=== PATIENT | male | born 1960 | race Caucasian/White ===

== ENCOUNTER 2022-05-14 17:08 | Inpatient (IN) ==
[2022-05-14] MEDS ORDERED: ONDANSETRON INJ 2 MG/ML 2 ML VIAL IV STA (17:29)
[2022-05-14] MEDS ORDERED: FAMOTIDINE 20MG IV PUSH 20 MG/5 ML SYR IV STA (17:29)
[2022-05-14] MEDS ORDERED: SODIUM CHLORIDE 0.9% 1000ML 1,000 ML IV SCH (17:30)
--- NOTE | 2022-05-14 17:34 | Emergency Department Note ---
Impression & Plan Acute KS, Bradycardia, Hypotension, Elevated troponin, COVID-19 ED Provider Note NAME: ZACH MARCELO AGE: 61 SEX: M : 1960 ARRIVES VIA: Walk-In INFORMANT: [Patient] ED PROVIDER(S): [Virgil Pete MD] CHIEF COMPLAINT: Weakness, illness HISTORY OF PRESENT ILLNESS: The patient is a 61-year-old male who presents to the ER with complaints of weakness, fatigue, nausea and a fluttering in his chest. He states that yesterday he was working outside in a shed and doing some cleaning. It was quite hot. He states that the chemicals and heat seem to overwhelm him and his vision became white. He was quite sweaty and had to sit down. Since that timeframe, he has been fatigued and has had a loss of appetite. He has noticed some belching and occasional fluttering in the chest. No chest pain. He has tried Tums which really has not helped. Yesterday, he had some mild epigastric pain, none today. There has been no fever, no cough. No diarrhea or vomiting. The patient is still urinating but states that his urine output has decreased. REVIEW OF SYSTEMS: See HPI for pertinent positives and negatives. A total of ten systems were reviewed and were otherwise negative. PMHx/PSHx: See Below SOCIAL HISTORY: See Below. PHYSICAL EXAM: GENERAL: Patient is in no acute distress. HEENT: No acute trauma, normocephalic atraumatic, mucous membranes moist, no nasal congestion, no scleral icterus. NECK: No stridor, no adenopathy, no meningismus, trachea is midline. LUNGS: Clear to auscultation bilaterally, no wheeze, no rhonchi, breath sounds equal. HEART: Without murmurs gallops or rubs, bradycardic, regular rhythm. ABDOMEN: Soft, nontender, bowel sounds positive, no peritonitis. EXTREMITIES: No cyanosis or edema, full range of motion of all the joints without pain or difficulty, no signs for acute trauma. NEUROLOGIC: Oriented x 3, no acute motor or sensory deficits, no focal weakness. SKIN: No rash, no jaundice, no diaphoresis. DIFFERENTIAL DIAGNOSIS: Infection, dehydration, reflux, viral infection, COVID-19, rhabdomyolysis, metabolic abnormality, hypo/hyperglycemia, electrolyte disturbance, anemia, hypoxia, KS, cardiac sources, intracerebral event, toxicologic issues, stroke, TIA, as well as other pathologies. EMERGENCY DEPARTMENT COURSE/PROCEDURES: ECG: Indication was weakness and fatigue. The ECG shows what appears to be a sinus bradycardia with a rate of 48. There is a Q wave in lead III. There is ST elevation in the inferior leads with some T wave inversion in aVL. There is some subtle ST depression in the anterior/lateral leads. The ECG is concerning for KS. QTC is 384. No PVCs. Compared to an ECG from 09 November 2018, significant changes have occurred. Criteria for KS are now present. Continuous Cardiac Monitoring: An order was placed for continuous cardiac monitoring. The monitor shows a rate of 49 with sinus bradycardia. Critical Care Note: I have personally spent 45 minutes of critical care time in the direct management of this patient. This includes bedside care, interpretation of diagnostic studies, and testing, discussion with consultants, patient, and family members, and other required patient management activities. This 45 minutes is in excess of all separately billable procedures. MEDICAL DECISION MAKING: There is a slight leukocytosis, this could be from the stress of his presentation or potentially infection. There is a normal hemoglobin and platelet count. No renal failure or significant electrolyte abnormality. Bilirubin and AST were slightly elevated, the remaining liver enzymes were unremarkable. Total CK was elevated at over 1000, consistent with some potential muscle breakdown. The patient appeared to be in a euthyroid state. COVID test returned positive. Influenza and RSV test returned negative. Chest x-ray did not show pneumonia or CHF. No mediastinal widening. ECG showed what appears to be a sinus bradycardia with ST elevation in the inferior leads with reciprocal changes. A Q wave was forming in lead III. Cardiac troponin returned quite elevated at over 22,000. The patient had presented bradycardic and hypotensive. He was not having any chest pain in fact, it appears his cardiac event may have happened yesterday. The patient was given IV saline, 1 L. He was given IV Zofran and IV Pepcid. He was given oral aspirin. Given the findings on ECG, a heart alert was initiated. I did speak with the interventionalist on-call. The interventionalist was involved in a another heart alert and as the patient was not having active chest pain, it was felt that he could wait until the first case was finished. The patient is currently resting comfortably. His blood pressure has improved with the saline. I spoke to the patient and his . They are aware of the findings. The patient remained stable while here in the ED. 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 Beliefs That Will Affect Care: None Current Living Situation: Spouse Feels Safe at Home: Yes Assistive Devices: None Allergies Allergies Allergy/AdvReac Type Severity Reaction Status Date / Time pollen extracts Allergy Intermediate ITCHY Verified 05/14/22 18:05 EYES, SNEEZING, CONGESTION Home Meds Home Medications Medication Instructions Recorded Confirmed allopurinol 100 mg tablet 200 mg PO HS 05/14/22 05/14/22 calcium carbonate 200 mg calcium 400 - 600 mg PO DIRECTED PRN 05/14/22 05/14/22 (500 mg) chewable tablet (Tums) Results & Data (ED) Vital Signs Vital Signs - 24 hr 05/14/22 17:13 05/14/22 17:51 05/14/22 17:53 Temperature 37.3 C Temperature Source Temporal Artery Scan Pulse Rate 60 47 L Pulse Rate [Left Apical] 47 L Pulse Rate from SpO2 Sensor Pulse Rhythm [Left Apical] Regular Pulse Strength [Left Apical] Normal Respiratory Rate 17 22 16 Respiratory Effort / Characteristics Non-Labored Non-Labored Respiratory Depth Normal Respiratory Pattern Blood Pressure 108/64 Blood Pressure [Right Arm] 89/65 L Blood Pressure Mean 78 Blood Pressure Mean [Right Arm] 73 Blood Pressure Position [Right Arm] Lying Pulse Oximetry 95 93 98 Oxygen Delivery Method Room Air Room Air Room Air Sepsis Recent Fever Within 48 Hours No Sepsis New/Unexplained Change in Mental Status N/A Sepsis Action Taken by Nursing No Action Required 05/14/22 17:54 05/14/22 18:00 05/14/22 18:03 Temperature Temperature Source Pulse Rate 49 L 47 L Pulse Rate [Left Apical] Pulse Rate from SpO2 Sensor Pulse Rhythm [Left Apical] Pulse Strength [Left Apical] Respiratory Rate 21 18 Respiratory Effort / Characteristics Respiratory Depth Respiratory Pattern Blood Pressure 87/61 L 96/63 L Blood Pressure [Right Arm] Blood Pressure Mean 69 74 Blood Pressure Mean [Right Arm] Blood Pressure Position [Right Arm] Pulse Oximetry 98 95 95 Oxygen Delivery Method Room Air Room Air Room Air Sepsis Recent Fever Within 48 Hours Sepsis New/Unexplained Change in Mental Status Sepsis Action Taken by Nursing 05/14/22 18:06 05/14/22 18:15 05/14/22 18:22 Temperature Temperature Source Pulse Rate 51 L Pulse Rate [Left Apical] 48 L 45 L Pulse Rate from SpO2 Sensor 48 L Pulse Rhythm [Left Apical] Regular Regular Pulse Strength [Left Apical] Normal Normal Respiratory Rate 16 19 16 Respiratory Effort / Characteristics Non-Labored Non-Labored Spontaneous Respiratory Depth Normal Normal Respiratory Pattern Regular Blood Pressure 92/54 L Blood Pressure [Right Arm] 96/63 L 92/54 L Blood Pressure Mean 66 Blood Pressure Mean [Right Arm] 74 66 Blood Pressure Position [Right Arm] Lying Lying Pulse Oximetry 98 97 98 Oxygen Delivery Method Room Air Room Air Sepsis Recent Fever Within 48 Hours Sepsis New/Unexplained Change in Mental Status Sepsis Action Taken by Nursing 05/14/22 18:30 05/14/22 18:45 Temperature Temperature Source Pulse Rate 48 L 47 L Pulse Rate [Left Apical] Pulse Rate from SpO2 Sensor 49 L 48 L Pulse Rhythm [Left Apical] Pulse Strength [Left Apical] Respiratory Rate 16 31 H Respiratory Effort / Characteristics Respiratory Depth Respiratory Pattern Blood Pressure 92/56 L 103/61 Blood Pressure [Right Arm] Blood Pressure Mean 68 75 Blood Pressure Mean [Right Arm] Blood Pressure Position [Right Arm] Pulse Oximetry 95 94 Oxygen Delivery Method Sepsis Recent Fever Within 48 Hours Sepsis New/Unexplained Change in Mental Status Sepsis Action Taken by [facility] Medications Current Medication List: was personally reviewed by me Laboratory Data Attestation: I reviewed the patient's lab results. Result diagrams: 05/14/22 17:39 05/14/22 17:39 Lab Results 05/14/22 05/14/22 05/14/22 Range/Units 17:39 17:39 17:39 WBC 12.42 H (4.8-10.8) K/uL RBC 4.92 (4.7-6.1) M/uL Hgb 15.4 (14.0-18.0) g/dL Hct 44.6 (42-52) % MCV 90.7 (80-100) fL MCH 31.3 (25-34) pg MCHC 34.5 (32-36) g/dL RDW Std Deviation 45.1 (36.4-46.3) fL RDW Coeff of Leeann 13.8 (11.5-14.5) % Plt Count 176 (130-400) K/uL MPV 10.6 H (7.4-10.4) fL Immature Gran % (Auto) 0.2 % Neut % (Auto) 81.0 % Lymph % (Auto) 10.3 % [place] % (Auto) 8.1 % Eos % (Auto) 0.4 % Baso % (Auto) 0.0 % Neut # (Auto) 10.05 H (1.4-6.5) K/uL Lymph # (Auto) 1.28 (1.2-3.4) K/uL [place] # (Auto) 1.01 H (0.11-0.59) K/uL Eos # (Auto) 0.05 (0-0.5) K/uL Baso # (Auto) 0.00 (0-0.2) K/uL Immature Gran # (Auto) 0.03 H (0.00-0.02) K/uL Sodium 140 (136-145) mmol/L Potassium 3.9 (3.5-5.1) mmol/L Chloride 106 (98-107) mmol/L Carbon Dioxide 28 (21-32) mmol/L Anion Gap 6 (3-11) BUN 31 H (6-23) mg/dl Creatinine 1.35 (0.6-1.4) mg/dl Est Cr Clr Drug Dosing 68.0 ml/min Est GFR ( Amer) 64.3 ml/min Est GFR (Non-Af Amer) 55.5 ml/min BUN/Creatinine Ratio 23.0 H (10-20) Glucose 131 H (70-99(Fasting)) mg/dl Calcium 10.1 (8.5-10.1) mg/dl Magnesium 2.0 (1.7-2.4) mg/dl Total Bilirubin 2.7 H (0.2-1.0) mg/dl AST 138 H (13-39) U/L ALT 34 (7-52) U/L Alkaline Phosphatase 90 (34-104) U/L Total Creatine Kinase 1252 H (30-223) U/L Troponin I High Sens 06022.4 H* (0-20) pg/ml Total Protein 6.9 (6.0-8.3) gm/dl Albumin 4.2 (3.4-5.0) gm/dl Globulin 2.7 (2.5-4.0) gm/dl Albumin/Globulin Ratio 1.6 (0.9-2) TSH 1.715 (0.300-4.500) uIu/ml SARS-CoV-2 (PCR) (Negative) Influenza Type A (PCR) (Neg) Influenza Type B (PCR) (Neg) RSV (RT-PCR) (Neg) 05/14/22 Range/Units 17:39 WBC (4.8-10.8) K/uL RBC (4.7-6.1) M/uL Hgb (14.0-18.0) g/dL Hct (42-52) % MCV (80-100) fL MCH (25-34) pg MCHC (32-36) g/dL RDW Std Deviation (36.4-46.3) fL RDW Coeff of Leeann (11.5-14.5) % Plt Count (130-400) K/uL MPV (7.4-10.4) fL Immature Gran % (Auto) % Neut % (Auto) % Lymph % (Auto) % [place] % (Auto) % Eos % (Auto) % Baso % (Auto) % Neut # (Auto) (1.4-6.5) K/uL Lymph # (Auto) (1.2-3.4) K/uL [place] # (Auto) (0.11-0.59) K/uL Eos # (Auto) (0-0.5) K/uL Baso # (Auto) (0-0.2) K/uL Immature Gran # (Auto) (0.00-0.02) K/uL Sodium (136-145) mmol/L Potassium (3.5-5.1) mmol/L Chloride (98-107) mmol/L Carbon Dioxide (21-32) mmol/L Anion Gap (3-11) BUN (6-23) mg/dl Creatinine (0.6-1.4) mg/dl Est Cr Clr Drug Dosing ml/min Est GFR ( Amer) ml/min Est GFR (Non-Af Amer) ml/min BUN/Creatinine Ratio (10-20) Glucose (70-99(Fasting)) mg/dl Calcium (8.5-10.1) mg/dl Magnesium (1.7-2.4) mg/dl Total Bilirubin (0.2-1.0) mg/dl AST (13-39) U/L ALT (7-52) U/L Alkaline Phosphatase (34-104) U/L Total Creatine Kinase (30-223) U/L Troponin I High Sens (0-20) pg/ml Total Protein (6.0-8.3) gm/dl Albumin (3.4-5.0) gm/dl Globulin (2.5-4.0) gm/dl Albumin/Globulin Ratio (0.9-2) TSH (0.300-4.500) uIu/ml SARS-CoV-2 (PCR) POSITIVE A* (Negative) Influenza Type A (PCR) Negative (Neg) Influenza Type B (PCR) Negative (Neg) RSV (RT-PCR) Negative (Neg) Administered Medications Discontinued Medications Aspirin (Aspirin Chew 324 Mg) Confirm Administered Dose 324 mg .ROUTE .STK-MED ONE Stop: 05/14/22 18:08 Last Admin: 05/14/22 18:11 Dose: 324 mg Documented by: [id number] Sodium Chloride (Nss 1000ml) 1,000 mls @ 999 mls/hr IV .[id number] [id number] Stop: 05/14/22 18:30 Last Infusion: 05/14/22 18:45 Dose: 0 mls/hr Documented by: [id number] Admin: 05/14/22 17:43 Dose: 999 mls/hr Documented by: [id number] Famotidine (Pepcid 20mg Iv Push) 20 mg in 5 mls @ 2.5 mls/min IV NOW STA Stop: 05/14/22 17:30 Last Admin: 05/14/22 17:43 Dose: 2.5 mls/min Documented by: [id number] Ondansetron HCl (Ondansetron Inj 2 Mg/Ml 2 Ml Vial) 4 mg IV NOW STA Stop: 05/14/22 17:30 Last Admin: 05/14/22 17:43 Dose: 4 mg Documented by: [id number] Imaging Data Radiologist's Impression: Chest X-Ray 05/14/22 17:29 XR chest 1V portable CLINICAL HISTORY: weakness TECHNIQUE: Single frontal radiograph of the chest was obtained. Comparison: None available at the time of this dictation. FINDINGS: No lines and tubes are seen. The cardiomediastinal silhouette is normal. The lungs are clear. No evidence of pleural effusion or pneumothorax. IMPRESSION: No acute chest disease. ACT 112: Negative or not required by law. Electronically signed by: Sae Joseph M.D. 05/14/2022 6:01 PM Discharge Plan Visit Data Chief Complaint: Illness Stated Complaint: FATIGUE, LOSS OF APETITE ED Provider: Virgil Pete Discharge Instructions Interventions: ED Discharge Assessment Last Done: 05/14/22 19:20 Prescriptions Prescriptions: No Action allopurinol 100 mg tablet 200 mg PO HS RF: 0 calcium carbonate [Tums] 200 mg calcium (500 mg) Tablet,Chewable 400 - 600 mg PO DIRECTED PRN (Reason: HEARTBURN/INDIGESTION) RF: 0
[2022-05-14 17:53] LABS: Eosinophils # (auto) 0.05 K/uL (0-0.5); Eosinophils % (auto) 0.4 %; Hematocrit (blood only) 44.6 % (42-52); Hemoglobin 15.4 g/dL (14.0-18.0); Immature Granulocytes # (auto) 0.03 K/uL (0.00-0.02); Immature Granulocytes % (auto) 0.2 %; Lymphocytes # (auto) 1.28 K/uL (1.2-3.4); Lymphocytes % (auto) 10.3 %; Mean Corpuscular Hemoglobin 31.3 pg (25-34); Mean Corpuscular Hgb Conc 34.5 g/dL (32-36); Mean Corpuscular Volume 90.7 fL (80-100); Mean Platelet Volume 10.6 fL (7.4-10.4); Monocytes # (auto) 1.01 K/uL (0.11-0.59); Monocytes % (auto) 8.1 %; Neutrophils # (auto) 10.05 K/uL (1.4-6.5); Platelet Count 176 K/uL (130-400); RDW Coefficient of Variation 13.8 % (11.5-14.5); RDW Standard Deviation 45.1 fL (36.4-46.3); Red Blood Count 4.92 M/uL (4.7-6.1); White Blood Count 12.42 K/uL (4.8-10.8)
--- NOTE | 2022-05-14 18:03 | XRay Report ---
XR chest 1V portable CLINICAL HISTORY: weakness TECHNIQUE: Single frontal radiograph of the chest was obtained. Comparison: None available at the time of this dictation. FINDINGS: No lines and tubes are seen. The cardiomediastinal silhouette is normal. The lungs are clear. No evid ence of pleural effusion or pneumothorax. IMPRESSION: No acute chest disease. ACT 112: Negative or not required by law. Electronically signed by: Sae Joseph M.D. 05/14/2022 6:01 PM
[2022-05-14] MEDS ORDERED: ASPIRIN CHEW 324 MG ONE (18:07)
[2022-05-14 18:16] LABS: Albumin Globulin Ratio 1.6 (0.9-2); Albumin Level 4.2 gm/dl (3.4-5.0); Bilirubin,Total 2.7 mg/dl (0.2-1.0); Calcium 10.1 mg/dl (8.5-10.1); Est GFR (African American) 64.3 ml/min; Est GFR (Non-African American) 55.5 ml/min; Globulin 2.7 gm/dl (2.5-4.0); Potassium 3.9 mmol/L (3.5-5.1); Total Protein 6.9 gm/dl (6.0-8.3)
[2022-05-14 18:34] LABS: Troponin I High Sensitivity 22192.4 pg/ml (0-20)
[2022-05-14 18:41] LABS: Influenza A virus by PCR Negative (Neg); Influenza B virus by PCR Negative (Neg); RSV by PCR Negative (Neg)
[2022-05-14 19:07] LABS: SARS CoV2 RNA(COVID-19) InHosp POSITIVE (Negative)
[2022-05-14] MEDS ORDERED: fentaNYL citrate 100 MCG/2 ML VIAL ONE (19:10)
[2022-05-14] MEDS ORDERED: niCARdipine HCL INJ 2.5 MG/ML 10 ML AMP ONE (19:10)
[2022-05-14] MEDS ORDERED: MIDAZOLAM HCL 1 MG/ML 2ML VIAL ONE (19:10)
[2022-05-14] MEDS ORDERED: NITROGLYCERIN/D5W 100MCG/ML 20ML SYR ONE (19:11)
--- NOTE | 2022-05-14 19:50 | History & Physical Report ---
Date of Service May 14, 2022 Assessment & Plan (1) STEMI (ST elevation myocardial infarction): Plan: Multivessel occlusion on cardiac catheterization for which CABG is recommended Bradycardia secondary to above Chronic systolic heart failure secondary ischemic cardiomyopathy with above Patient currently without signs of fluid overload COVID-19 illness without pulmonary symptoms Hyperglycemia rule out DM ICU monitoring [facility] transfer once bed available. (ICU provider to facilitate transfer.) Atropine as needed symptomatic bradycardia. Supportive management for COVID-19 illness Check hemoglobin A1c DVT prophylaxis. IV heparin Full code Text document was generated using SpinNote voice recognition software. It may contain grammatical or spelling errors. Kindly contact undersigned for clarification of any documentation item in question. History of Present Illness Chief Complaint: Weakness, illness Primary Care Provider: Amarjit Leon MD History obtained from patient and records. Medical history significant for hyperlipidemia, gout. Last confinement October 2018 for syncope. Yesterday, patient noted generalized weakness, fatigue, nausea symptoms. Chest fluttering without actual chest pain or shortness of breath. Patient attributed symptoms to outdoor heat while he was working outside in the shed. Patient denies cough symptoms. No known recent sick COVID-19 contacts. Patient completed COVID-19 vaccination. Patient consulted ER for persistent symptoms. ST elevation noted on inferior leads on EKG. Patient underwent emergent cardiac catheterization. Left circumflex and LAD noted to be occluded. Ejection fraction noted to be 40%. No PCI with above findings. CABG recommended by pasteurizing supervisor pending bed availability at [facility]. Patient transferred to ICU for postprocedure monitoring. Patient currently comfortable. 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 Allergies Allergy/AdvReac Type Severity Reaction Status Date / Time pollen extracts Allergy Intermediate ITCHY Verified 05/14/22 18:05 EYES, SNEEZING, CONGESTION Home Medications Medication Instructions Recorded Confirmed Type allopurinol 100 mg tablet 200 mg PO HS 05/14/22 05/14/22 History calcium carbonate 200 mg calcium 400 - 600 mg PO DIRECTED PRN 05/14/22 05/14/22 History (500 mg) chewable tablet (Tums) Past Med/Surg History Medical History Gout Family History Other No significant family history Social History Smoking Status: Never smoker Second Hand Exposure: No; Hx Alcohol Use: Yes Alcohol type: other Hx Substance Use: No Preferred Language: Spanish Communication Ability: Effective Dental Laboratory Technician Required: No Beliefs That Will Affect Care: None Current Living Situation: Spouse Feels Safe at Home: Yes Assistive Devices: None Review of Systems Review of Systems: As per HPI, all other systems reviewed and negative Physical Exam Physical Exam: GENERAL: Comfortable, pleasant, obese, no respiratory distress SKIN: Normal color, warm HEENT: [place] palpebral conjunctivae, no ptosis, dry buccal mucosa NECK : Supple, no tenderness CHEST : CTA, no tenderness HEART : Bradycardic, no obvious murmurs ABDOMEN: Some distention, nontender EXTREMITIES : No LE swelling/tenderness, no other conspicuous deformities noted NEUROLOGIC : Coherent, no facial asymmetry, no other gross focality Results & Data Results & Data ([facility]) Vital Signs (Past 12 Hours) Vital Signs Temp Pulse Pulse Resp BP BP Pulse Ox 05/14/22 18:45 47 L 31 H 103/61 94 05/14/22 18:30 48 L 16 92/56 L 95 05/14/22 18:22 45 L 16 92/54 L 98 05/14/22 18:15 51 L 19 92/54 L 97 05/14/22 18:06 48 L 16 96/63 L 98 05/14/22 18:03 47 L 18 96/63 L 95 05/14/22 18:00 49 L 21 87/61 L 95 05/14/22 17:54 98 05/14/22 17:53 47 L 16 89/65 L 98 05/14/22 17:51 47 L 22 93 05/14/22 17:13 37.3 C 60 17 108/64 95 Laboratory Results Laboratory Results WBC 12.42 K/uL (4.8-10.8) H 05/14/22 17:39 RBC 4.92 M/uL (4.7-6.1) 05/14/22 17:39 Hgb 15.4 g/dL (14.0-18.0) 05/14/22 17:39 Hct 44.6 % (42-52) 05/14/22 17:39 MCV 90.7 fL (80-100) 05/14/22 17:39 MCH 31.3 pg (25-34) 05/14/22 17:39 MCHC 34.5 g/dL (32-36) 05/14/22 17:39 RDW Std Deviation 45.1 fL (36.4-46.3) 05/14/22 17:39 RDW Coeff of Leeann 13.8 % (11.5-14.5) 05/14/22 17:39 Plt Count 176 K/uL (130-400) 05/14/22 17:39 MPV 10.6 fL (7.4-10.4) H 05/14/22 17:39 Immature Gran % (Auto) 0.2 % 05/14/22 17:39 Neut % (Auto) 81.0 % 05/14/22 17:39 Lymph % (Auto) 10.3 % 05/14/22 17:39 [place] % (Auto) 8.1 % 05/14/22 17:39 Eos % (Auto) 0.4 % 05/14/22 17:39 Baso % (Auto) 0.0 % 05/14/22 17:39 Neut # (Auto) 10.05 K/uL (1.4-6.5) H 05/14/22 17:39 Lymph # (Auto) 1.28 K/uL (1.2-3.4) 05/14/22 17:39 [place] # (Auto) 1.01 K/uL (0.11-0.59) H 05/14/22 17:39 Eos # (Auto) 0.05 K/uL (0-0.5) 05/14/22 17:39 Baso # (Auto) 0.00 K/uL (0-0.2) 05/14/22 17:39 Immature Gran # (Auto) 0.03 K/uL (0.00-0.02) H 05/14/22 17:39 Sodium 140 mmol/L (136-145) 05/14/22 17:39 Potassium 3.9 mmol/L (3.5-5.1) 05/14/22 17:39 Chloride 106 mmol/L (98-107) 05/14/22 17:39 Carbon Dioxide 28 mmol/L (21-32) 05/14/22 17:39 Anion Gap 6 (3-11) 05/14/22 17:39 BUN 31 mg/dl (6-23) H 05/14/22 17:39 Creatinine 1.35 mg/dl (0.6-1.4) 05/14/22 17:39 Est Cr Clr Drug Dosing 68.0 ml/min 05/14/22 17:39 Est GFR ( Amer) 64.3 ml/min 05/14/22 17:39 Est GFR (Non-Af Amer) 55.5 ml/min 05/14/22 17:39 BUN/Creatinine Ratio 23.0 (10-20) H 05/14/22 17:39 Glucose 131 mg/dl (70-99(Fasting)) H 05/14/22 17:39 Calcium 10.1 mg/dl (8.5-10.1) 05/14/22 17:39 Magnesium 2.0 mg/dl (1.7-2.4) 05/14/22 17:39 Total Bilirubin 2.7 mg/dl (0.2-1.0) H 05/14/22 17:39 AST 138 U/L (13-39) H 05/14/22 17:39 ALT 34 U/L (7-52) 05/14/22 17:39 Alkaline Phosphatase 90 U/L (34-104) 05/14/22 17:39 Total Creatine Kinase 1252 U/L (30-223) H 05/14/22 17:39 Troponin I High Sens 96759.4 pg/ml (0-20) H* 05/14/22 17:39 Total Protein 6.9 gm/dl (6.0-8.3) 05/14/22 17:39 Albumin 4.2 gm/dl (3.4-5.0) 05/14/22 17:39 Globulin 2.7 gm/dl (2.5-4.0) 05/14/22 17:39 Albumin/Globulin Ratio 1.6 (0.9-2) 05/14/22 17:39 TSH 1.715 uIu/ml (0.300-4.500) 05/14/22 17:39 SARS-CoV-2 (PCR) POSITIVE (Negative) A* 05/14/22 17:39 Influenza Type A (PCR) Negative (Neg) 05/14/22 17:39 Influenza Type B (PCR) Negative (Neg) 05/14/22 17:39 RSV (RT-PCR) Negative (Neg) 05/14/22 17:39 Impressions Chest X-Ray 05/14/22 17:29 XR chest 1V portable CLINICAL HISTORY: weakness TECHNIQUE: Single frontal radiograph of the chest was obtained. Comparison: None available at the time of this dictation. FINDINGS: No lines and tubes are seen. The cardiomediastinal silhouette is normal. The lungs are clear. No evidence of pleural effusion or pneumothorax. IMPRESSION: No acute chest disease. ACT 112: Negative or not required by law. Electronically signed by: Sae Joseph M.D. 05/14/2022 6:01 PM Diagnostic Findings EKG as per my interpretation: T, junctional rhythm, ST elevation inferior leads
--- NOTE | 2022-05-14 19:52 | Pre Anesthesia Assessment ---
Date of Service May 14, 2022 Pre Sedation Assessment Vital Signs Temp Pulse Pulse Resp BP BP Pulse Ox 05/14/22 18:45 47 L 31 H 103/61 94 05/14/22 18:30 48 L 16 92/56 L 95 05/14/22 18:22 45 L 16 92/54 L 98 05/14/22 18:15 51 L 19 92/54 L 97 05/14/22 18:06 48 L 16 96/63 L 98 05/14/22 18:03 47 L 18 96/63 L 95 05/14/22 18:00 49 L 21 87/61 L 95 05/14/22 17:54 98 05/14/22 17:53 47 L 16 89/65 L 98 05/14/22 17:51 47 L 22 93 05/14/22 17:13 37.3 C 60 17 108/64 95 Cardiovascular RRR, no murmur, no edema Respiratory normal respiratory effort, lungs clear to auscultation Pre-Sedation Airway Assessment Smoking Status: Never smoker II III Notes The planned sedation has been discussed with the patient. Informed Consent was obtained. I have identified the patient, determined the appropriateness of sedation and have assessed the patient immediately prior to the procedure. All medicine(s) and interventions are by my order.
--- NOTE | 2022-05-14 19:54 | Post Anesthesia Assessment ---
Date of Service May 14, 2022 Post Sedation Assessment Vital Signs Temp Pulse Pulse Resp BP BP Pulse Ox 05/14/22 18:45 47 L 31 H 103/61 94 05/14/22 18:30 48 L 16 92/56 L 95 05/14/22 18:22 45 L 16 92/54 L 98 05/14/22 18:15 51 L 19 92/54 L 97 05/14/22 18:06 48 L 16 96/63 L 98 05/14/22 18:03 47 L 18 96/63 L 95 05/14/22 18:00 49 L 21 87/61 L 95 05/14/22 17:54 98 05/14/22 17:53 47 L 16 89/65 L 98 05/14/22 17:51 47 L 22 93 05/14/22 17:13 37.3 C 60 17 108/64 95 Recovery Score Activity: Moves 4 extremities Respiration: Deep Breath/Cough Circulation: +/-20% PreAnes Value Consciousness: Fully Awake Oxygen Saturation: > 92% On Room Air Discharge Sedation Level of Care: Phase I Post Sedation Plan On clinical assessment, the patient appears to have tolerated the sedation without complications. Patient is recovering as anticipated. Patient will continue to be monitored by nursing and may be discharged when sedation discharge criteria are met per below protocol. Upon Completions of procedure up to 15 minutes continue every 5 minute vital signs and the P.A.R. score; then discharge to a Phase I or Fast Track to Phase II per the following guidelines: * Discharge Patient to appropriate Phase II area if PAR is 8 or greater or return to pre- procedure baseline. The post - procedure orders will be as directed. * If PAR score is less than 8 or not return to pre-procedure baseline then patient will follow Phase I monitoring till PAR is reached for Phase II. The Phase I may be done in procedure room or may call to secure a Phase I area. * If naloxone or flumazenil are used for reversal, hold in Phase I for continued monitoring from when last reversal dose was given for a minimum of 60 minutes or longer pending the nurse and/or physician discretion of patient condition before discharge to Phase II. Please call the Sedation Physician to re-evaluate and complete post-note for discharge to Phase II area. Do NOT discharge from procedure sedation or Phase 1 until post- sedation evaluation note is complete by procedure /sedation MD Sedation Discharge Instructions to be given to the patient at discharge to home.
[2022-05-14] MEDS ORDERED: ATORVASTATIN 40 MG TAB PO SCH (20:00)
[2022-05-14] MEDS ORDERED: Heparin IV Adult Wt-Based Standard WITH Bolus Protocol IV SCH (20:04)
--- NOTE | 2022-05-14 20:08 | Cardiac Catheterization ---
ACC Data: Rehabilitation Nurse Cardiac Status Clinical evaluation leading to the procedure CAD Presenation: Non STEMI Diagnostic Physicians Name: Tigre Brooks MD Closure Device Recommendations: CABG Cardiac Cath Procedure Full Procedure Date May 14, 2022 Pre-Procedure Diagnosis Pre-Procedure Diagnosis: Non STEMI AUC Score AUC Score: 9 Post-Procedure Diagnosis Post-Procedure Diagnosis: Severe CAD Procedure(s) Performed Procedure(s) Performed: Coronary Angiography, Left Heart Cath and LV Angiography Trimming Inspector Tigre Brooks MD Estimated Blood Loss Estimated Blood Loss: None Summary of Findings 61-year-old gentleman, presented to the hospital with symptoms of generalized fatigue, poor exercise tolerance and upper abdominal discomfort/indigestion which started yesterday morning. His initial EKG in the emergency room showed evidence of mild ST segment elevations in inferior leads along with Q wave changes suggesting subacute myocardial infarction. His troponin levels were significantly elevated as well. He did not complain of any chest discomfort or tightness, denied any other significant symptoms of shortness of breath, dizziness or palpitations. Cardiac catheterization revealed occluded dominant proximal left circumflex artery, also 80 to 90% ostial and proximal left anterior descending artery stenosis. Right coronary artery was small and nondominant and was giving collateral flow to his distal left circumflex circulation. LV gram showed evidence of inferolateral wall hypokinesis, ejection fraction of 40% range, LVEDP was elevated at 30 mmHg. Given his above presentation and coronary anatomy, he would require coronary artery bypass grafting, further plans for transfer to [facility] will be made. He will be started on aspirin, high intensity statins and beta-blockers as tolerated. Also started on intravenous heparin for the next 24 to 48 hours. These findings were discussed with his , also intensive care unit staff prior to his transfer. Hemodynamics Rest Ao:: 103/60/109 Final Ao: 98/59/74 LV: 119/10/30 Recommendations Recommendations: CABG Radiation Exposure (mGy) 659 Contrast (mls) 81 I attest to the content of the Intraoperative Record and any orders documented therein. Any exceptions are noted below. PG Care Time/CCT Total # of Minutes Spent Total Time Spent with Patient: Total time spent is greater than 50% in coordination of care (as documented) at patient's floor/unit and/or counseling patient:
[2022-05-14] MEDS ORDERED: HEPARIN SOD (PORCINE) 1000 UNIT/ML IV ONE (20:17)
[2022-05-14] MEDS ORDERED: HEPARIN SODIUM/DEXTROSE 25,000 UNITS/500 ML BAG IV SCH (20:30)
--- NOTE | 2022-05-14 20:31 | Critical Care Consultation ---
Date of Consultation May 14, 2022 Assessment & Plan (1) Admitted to intensive care unit: Reason Critically Ill: 61-year-old male with acute inferior STEMI who is status post cardiac catheterization revealing multivessel coronary artery disease requiring ICU admission with plan transfer to tertiary care facility for evaluation for CABG. 2041: Reached out to CT surgery at [facility]. Spoke to Dr. Najera (CT Surgery) and Dr. Beckford (Cardiology). Patient accepted in transfer to [facility]. NEURO - * CAM ICU: NEGATIVE CARDIAC/VASCULAR - * Acute to Subacute Inferior STEMI s/p cardiac catheterization w/ findings of multivessel CAD: * Patient requires evaluation for CABG per interventionalist. * Patient asymptomatic w/o c/o chest pain. * Will continue on Heparin gtt. * Sinus bradycardia w/ occasional junctional rhythms noted on monitor. Hemodynamically stable. Pads in place. Atropine if needed. Consider Dopamine if necessary. Ultimately, transvenous pacer if patient becomes symptomatic. * 2041 - Spoke with Drs. Beckford and Reinaldo of [facility] cardiology and CT surgery. Accepted by Dr. Beckford in transfer to [facility]. * Patient updated. * EKG: Sinus Bradycardia @ [address] elevations in III, aVF. Q wave in III. QTc 384 ms. * Monitor on telemetry. RESPIRATORY - * No h/o pulmonary disease. * Saturating well on room air. GI/NUTRITION - * NPO while awaiting surgical evaluation. RENAL/LYTES - * No significant electrolyte derangements. * Elevated CPK w/o ROSA/ARF findings * Continue w/ LR for now. - * No concerns at this time. * Strict I&Os. ENDO - * No h/o DM or Thyroid Dz * BSGs per unit protocol. ISS --> gtt per unit policy. HEME - * Stable H&H * Requiring Heparin gtt in the setting of CAD. ID - * COVID-19 Positive: * Of questionable status at this time. * Patient reports symptoms of fever, nasal congestion, cough at the beginning of March. Unfortunately, patient was never tested for Covid. * Positive PCR today. * To consider new positive test at this time. * Thankfully asymptomatic otherwise. LINES/IV ACCESS - * PIVs x2 DVT PROPHYLAXIS - * Heparin gtt * SCDs I have personally spent 65 minutes of critical care time in the direct management of this patient. This is a life/limb threatening event. This includes time spent evaluating patient, direct bedside care, chart review, placing orders, interpretation of diagnostic studies, discussion with consultants, patient, and family members, as well as other required patient management activities. This time is exclusive of all separately billable procedures, and teaching time and separate from and in addition to any other critical care service time. Thank you for allowing us to participate in the care of this patient. Please refer to my attending physician's documentation for any further recommendations. (2) Multi-vessel coronary artery stenosis: (3) S/P cardiac catheterization: (4) Acute AL: (5) Bradycardia: (6) Hypotension: (7) Elevated troponin: (8) COVID-19: History of Present Illness Attending Physician: Tigre Brooks MD History of Present Illness Patient is a 61-year-old male with a significant past medical history of gout who presented to the emergency department this evening with complaints of near syncope, generalized fatigue, and intermittent sweating. Apparently, yesterday, while cleaning his shed, the patient had an episode of near syncope. He also had profound sweating 5.2. After sitting down, his symptoms did resolve. His generalized fatigue and weakness today as well as lack of appetite prompted visit to the emergency department today. Upon evaluation in the emergency d epartment, the patient was noted to have ST elevations in leads III and aVF as well as development of Q waves in lead III. High-sensitivity troponin elevated at greater than 22,000. Patient taken emergently to the catheterization suite where he was found to have occlusion of the dominant proximal LEFT circumflex artery, also 80 to 90% ostial and proximal left anterior descending artery stenosis, right coronary artery was small and nondominant and was giving collateral flow to his distal left circumflex circulation. LV gram showed evidence of inferior lateral wall hypokinesis, ejection fraction 40% range, LVEDP was elevated at 30 mmHg. I received a call from lab technician who recommends transfer to tertiary care facility for evaluation for CABG. As the patient is completely asymptomatic to this point, he recommends continuing heparin drip for now with plan for transfer as soon as possible. Upon evaluation in the ICU, the patient is awake, alert, and oriented. Other than feeling generally fatigued, he does not offer complaints at this time. It should be noted that the patient tested positive for COVID during PCR screening. In conversation with patient, he reports that he likely had symptoms of COVID during the beginning of March. He reports that during that time. He had a fever for approximately 12 hours with associated nasal congestion and upper respirator y symptoms for a few days, but has since had no symptoms at this time. Patient states that he has had some "seasonal allergy" type symptoms since that time, but no acute symptoms otherwise. Specifically, the patient offers no complaints of headaches, dizziness, lightheadedness, chest pain, palpitations, shortness of breath, pleuritic pain, nausea, vomiting, abdominal pain, hematochezia, melena, hematuria, or dysuria. Allergies Allergy/AdvReac Type Severity Reaction Status Date / Time pollen extracts Allergy Intermediate ITCHY Verified 05/14/22 18:05 EYES, SNEEZING, CONGESTION Home Medications Medication Instructions Recorded Confirmed Type allopurinol 100 mg tablet 200 mg PO HS 05/14/22 05/14/22 History calcium carbonate 200 mg calcium 400 - 600 mg PO DIRECTED PRN 05/14/22 05/14/22 History (500 mg) chewable tablet (Tums) Patient History Medical History Gout Family History Other No significant family history Social History Smoking Status: Never smoker Hx Alcohol Use: Yes Alcohol type: other Hx Substance Use: No Preferred Language: Chinese Communication Ability: Effective Copyist Required: No Beliefs That Will Affect Care: None Current Living Situation: Spouse Feels Safe at Home: Yes Assistive Devices: None Review of Systems Review of Systems: A complete 10 point review of systems was reviewed with the patient with pertinent positives and negatives as per history of present illness. All else were negative. Physical Exam Physical Exam: VITAL SIGNS - Vital signs and nursing notes were reviewed. GENERAL - 61-year-old male appearing his stated age who is in no acute distress. Communicates well with provider and answers questions appropriately. HEAD - NC/AT. EYES - PERRL with EOMI bilaterally. Sclera anicteric. Palpebral conjunctiva pink and moist with no injection noted. EARS - No deformities of external structures noted on gross examination bilaterally. NOSE - Midline and without cyanosis. No epistaxis or purulent drainage noted. MOUTH/OROPHARYNX - Without perioral cyanosis. Buccal mucosa pink and moist and without leukoplakia. NECK - Neck with FROM. Supple to palpation. LUNGS - Chest wall symmetric without accessory muscle use, intercostals re tractions, or central cyanosis. Normal vesicular breath sounds CTA B/L. No wheezes, rales, or rhonchi appreciated. CARDIAC - RRR with S1/S2. No murmur, rubs, or gallops appreciated. No reproducible tenderness to palpation appreciated over the anterior chest wall. ABDOMEN - Abdominal contour obese without pulsations or visible masses. BS normoactive all four quadrants. No tenderness, palpable masses, hepatosplenomegaly, or ascites noted. EXTREMITIES - No clubbing or peripheral cyanosis. No pretibial edema present. +3/5 radial and dorsalis pedis pulses palpated throughout. +5/5 strength noted in UE/LE bilaterally. NEUROLOGIC - Cranial nerves II through XII grossly intact. Sensory intact to light touch throughout. PSYCH - A&Ox3 and cooperates fully with examiner. Pt is very pleasant and inter acts well with examiner. Results & Data Results & Data ([facility]) Vital Signs (Past 12 Hours) Vital Signs Temp Pulse Pulse Resp BP BP Pulse Ox 05/14/22 18:45 47 L 31 H 103/61 94 05/14/22 18:30 48 L 16 92/56 L 95 05/14/22 18:22 45 L 16 92/54 L 98 05/14/22 18:15 51 L 19 92/54 L 97 05/14/22 18:06 48 L 16 96/63 L 98 05/14/22 18:03 47 L 18 96/63 L 95 05/14/22 18:00 49 L 21 87/61 L 95 05/14/22 17:54 98 05/14/22 17:53 47 L 16 89/65 L 98 05/14/22 17:51 47 L 22 93 05/14/22 17:13 37.3 C 60 17 108/64 95 Coding Level of Care Code Critical Care 1st 30-74 mins Diagnoses Admitted to intensive care unit Z78.9 Multi-vessel coronary artery stenosis I25.10 S/P cardiac catheterization Z98.890 Acute AL I21.9 Bradycardia R00.1 Hypotension I95.9 Elevated troponin R77.8 COVID-19 U07.1 Time Spent (min) 65
[2022-05-14] MEDS ORDERED: ICU PROTOCOL FOR HYPERGLYCEMIA PRN ×2 (20:34)
[2022-05-14] MEDS ORDERED: traMADol HCL 50 MG TABLET PO PRN (20:34)
[2022-05-14] MEDS ORDERED: ACETAMINOPHEN 325 MG TAB PO PRN (20:34)
[2022-05-14] MEDS ORDERED: HEPARIN 25000 UNIT/500 ML D5W IV ONE (20:55)
[2022-05-14] MEDS ORDERED: METOPROLOL TARTRATE 25 MG TAB PO SCH (21:00)
[2022-05-14] MEDS ORDERED: allopurinoL 100 MG TAB PO SCH (21:00)
[2022-05-14] MEDS ORDERED: ATROPINE SULFATE 0.1 MG/ML 10ML SYR IV PRN (21:07)
[2022-05-14] MEDS ORDERED: LACTATED RINGER'S 1,000 ML IV ONE (21:08)
[2022-05-14 21:59] LABS: Partial Thromboplastin Ratio 1.1; Partial Thromboplastin Time 29.4 Seconds (21.0-31.0)
--- NOTE | 2022-05-14 23:37 | Discharge Summary ---
Date of Service May 14, 2022 Admission HPI Per Admitting Provider History obtained from patient and records. Medical history significant for hyperlipidemia, gout. Last confinement October 2018 for syncope. Yesterday, patient noted generalized weakness, fatigue, nausea symptoms. Chest fluttering without actual chest pain or shortness of breath. Patient attributed symptoms to outdoor heat while he was working outside in the shed. Patient denies cough symptoms. No known recent sick COVID-19 contacts. Patient completed COVID-19 vaccination. Patient consulted ER for persistent symptoms. ST elevation noted on inferior leads on EKG. Patient underwent emergent cardiac catheterization. Left circumflex and LAD noted to be occluded. Ejection fraction noted to be 40%. No PCI with above findings. CABG recommended by jelly filter tender pending [place] availability [place] [facility] Patient transferred to ICU for postprocedure monitoring. Patient currently comfortable. 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 Discharge Data Consultations 05/14/22 18:49 ED Decision to Admit Stat 05/14/22 19:54 Consult Internal Medicine Routine 05/14/22 20:31 Burn CD for patient Stat 05/14/22 20:34 Consult Footwear Stitcher Routine Procedures Performed Operation Date: 05/14/22 19:30 Actual Procedures p Cineradiography w/Routine Exam - Tigre Brooks MD p Cath, Left with Cors and Vent - Tigre Brooks MD Hospital Course (1) STEMI (ST elevation myocardial infarction): Multivessel occlusion on cardiac catheterization for which CABG is recommended Bradycardia secondary to above Chronic systolic heart failure secondary ischemic cardiomyopathy with above Patient currently without signs of fluid overload COVID-19 illness without pulmonary symptoms Hyperglycemia rule out DM ICU monitoring [facility] [place] once bed available. (ICU provider to facilitate transfer.) Atropine as needed symptomatic bradycardia. Supportive management for COVID-19 illness Check hemoglobin A1c DVT prophylaxis. IV heparin Full code Patient kindly accepted for transfer by Dr. Hoffmann of [facility]. Total time to prepare this discharge summary was less than 10 minutes. Text document was generated using [employer] voice recognition software. It may contain grammatical or spelling errors. Kindly contact undersigned for clarification of any documentation item in question.
[2022-05-15 07:57] LABS: Estimated Average Glucose 114 mg/dl; Hemoglobin A1C 5.6 % (4.5-5.6)
--- NOTE | 2022-05-15 08:21 | Electrocardiogram Report ---
Test Reason : Blood Pressure : / mmHG Vent. Rate : 048 BPM Atrial Rate : 054 BPM P-R Int : 000 ms QRS Dur : 096 ms QT Int : 430 ms P-R-T Axes : 000 013 110 degrees QTc Int : 384 ms Junctional rhythm Acute Inferior infarct Consider right ventricular involvement in acute inferior infarct Abnormal ECG When compared with ECG of 09-NOV-2018 21:47, Acute Inferior infarct now present Confirmed by Rick Metz ([id number]) on 05/15/2022 8:21:07 AM Referred By: REFERRED SELF Confirmed By:Rick Metz
[2022-05-15] MEDS ORDERED: ASPIRIN 81 MG ECTAB PO SCH (09:00)
== END 2022-05-14 23:46 | disposition short-term general hospital (02) | DRG 280 ==
LOC: ED 17:08 → CC 19:20 → 1E 19:52